=== PATIENT | male | born 1965 | race Caucasian/White ===

== ENCOUNTER 2022-07-26 11:00 | Outpatient (RCR) | payer OTHER, SELFPAY | END 2022-12-27 10:07 | disposition home or self-care (01) | LOC: HO.PTCHIC 11:00 | PROVIDERS: PCP Internal Medicine; Visit Provider Physician Assistant | DX: Z96.89 Presence of other specified functional implants (principal); Z98.1 Arthrodesis status | CPT/HCPCS: 97110; 97140; 97162 ==

== ENCOUNTER 2022-10-24 13:00 | Outpatient (RCR) | payer OTHER, SELFPAY | END 2022-12-03 10:30 | disposition home or self-care (01) | LOC: HO.PTCHIC 13:00 | PROVIDERS: PCP Internal Medicine; Visit Provider Physician Assistant | DX: Z96.89 Presence of other specified functional implants (principal); Z98.1 Arthrodesis status | CPT/HCPCS: 97110; 97140; 97163 ==